=== PATIENT | male | born 1950 | race African-American/Black ===

== ENCOUNTER → 2017-10-18 | Outpatient (CLI) | payer BC ==
[~2017-10-18] MED LIST: ATOR20TA65 PO; CEPH250C37 PO; CEPH500C24 PO; CHLO5CAP PO; DOXY-179 PO; MELO-207 PO; [UNRECOGNIZED DRUG - REMARK]
[2017-10-18 08:48] LABS: PLATELET COUNT, AUTOMATED 253 K/uL (150-450)
[2017-10-18 09:44] LABS: LDL CHOLESTEROL 87 mg/dl
== END ==
LOC: LAB 08:03
PROVIDERS: ATTEND Internal Medicine
DX: E78.4 Other hyperlipidemia (principal); R73.9 Hyperglycemia, unspecified; R03.0 Elevated blood-pressure reading, without diagnosis of hypertension; E78.5 Hyperlipidemia, unspecified
CPT/HCPCS: 36415; 81001; 82040; 82247; 82310; 82374; 82435; 82465; 82565; 82947; 83036; 83718; 84075; 84132; 84155; 84295; 84443; 84450; 84460; 84478; 84520; 85025

== ENCOUNTER → 2018-10-23 | Outpatient (CLI) | payer BC ==
[~2018-10-23] MED LIST changes: +FLUT16SP19 NS
[2018-10-23 07:34] LABS: PLATELET COUNT, AUTOMATED 251 K/uL (150-450)
[2018-10-23 07:50] LABS: LDL CHOLESTEROL 94 mg/dl
== END ==
LOC: LAB 07:10
PROVIDERS: ATTEND Internal Medicine
DX: R73.9 Hyperglycemia, unspecified (principal); E78.5 Hyperlipidemia, unspecified; J06.9 Acute upper respiratory infection, unspecified; R03.0 Elevated blood-pressure reading, without diagnosis of hypertension
CPT/HCPCS: 36415; 81001; 82040; 82247; 82310; 82374; 82435; 82465; 82565; 82947; 83036; 83718; 84075; 84132; 84153; 84155; 84295; 84443; 84450; 84460; 84478; 84520; 85025

== ENCOUNTER 2018-11-11 00:43 | Emergency (ER) | payer BC ==
[~2018-11-11 00:43] MED LIST changes: +ATOR40TA69 PO; +TAMS0.4C25 PO
[2018-11-11 00:47] VITALS: BP 168/82
--- NOTE | 2018-11-11 00:48 | ER Report ---
History and Physical Time Seen By MD: 00:47 HPI/ROS CHIEF COMPLAINT: Left forearm wound HISTORY OF PRESENT ILLNESS: 68-year-old male presents ambulatory to the ER concerned over a wound on his left forearm. Patient's unsure how he obtained the wound. He admits that earlier [place] He recalls no contact with any trees or shrubs. Close examination of his left forearm reveals a tiny 1-2 mm puncture wound with a lateral scrape. There is no palpable foreign body. Patient notes no distal numbness or weakness. He demonstrates a strong grasp. Patient thinks his tetanus shot is greater than 10 years. Allergies: Coded Allergies: No Known Drug Allergies (Unverified , 07/23/14) Home Meds Active Scripts Tamsulosin Hcl (FLOMAX) 0.4 Mg Cap.er.24h, 0.4 MG PO QHS, #30 CAP 6 Refills Prov:REINIER CAMPBELL MD 11/08/18 Atorvastatin Calcium (ATORVASTATIN CALCIUM) 40 Mg Tablet, 1 TAB PO QDAY, #90 TAB 3 Refills Prov:REINIER CAMPBELL MD 11/08/18 Chlordiazepoxide Hcl (CHLORDIAZEPOXIDE HCL) 5 Mg Capsule, 1 CAP PO DAILY, #90 CAPSULE 1 Refill Prov:REINIER CAMPBELL MD 10/17/17 Discontinued Scripts Fluticasone Prop 50 Mcg Ns (FLONASE 50 MCG NS) 16 Gm [place].susp, 2 SPRAYS NS QDAY, #1 BOT Prov:REINIER CAMPBELL MD 09/07/18 Atorvastatin Calcium (ATORVASTATIN CALCIUM) 20 Mg Tablet, 1 TAB PO QDAY, #90 TAB 3 Refills Prov:REINIER CAMPBELL MD 03/27/18 Reviewed Nurses Notes: Yes Old Medical Records Reviewed: Yes Hx Smoking: No Smoking Status: Never Smoker Hx Alcohol Use: Yes Constitutional Vital Sign - Last 24 Hours 11/11/18 00:47 Temp 98.6 Pulse 80 Resp 15 B/P (MAP) 168/82 Pulse Ox 91 O2 Delivery Room Air Physical Exam General appearance: Alert no distress. Respiratory: Chest is non tender, lungs are clear to auscultation. Cardiac: Regular rate and rhythm Extremities: Examination of the left arm reveals a puncture wound over the olecranon process down the mid forearm region. There is also an adjacent abrasion. There is no palpable foreign body. Distal neurovascular function in the left hand is intact. There is no pain on movement of the elbow or the wrist. DIFFERENTIAL DIAGNOSIS: After history and physical exam differential diagnosis was considered for puncture wound, abrasion Medical Decision Making ED Course/Re-evaluation ED Course Patient was admitted to an examination room. H&P was done. The differential diagnosis was considered. On clinical examination. Patient has a intact neurovascular function in his left arm. There is a puncture wound. His tetanus status is updated. Patient's advised wound care and observation for signs of infection. Decision to Disposition Date: November 11, 2018 Decision to Disposition Time: 01:01 Depart Departure Latest Vital Signs Vital Signs Date Time Temp Pulse Resp B/P (MAP) Pulse Ox O2 Delivery O2 Flow Rate FiO2 11/11/18 00:47 98.6 80 15 168/82 91 Room Air Impression: Primary Impression: Puncture wound of forearm Condition: Improved Disposition: HOME OR SELF-CARE Referrals: REINIER CAMPBELL MD (PCP) Patient Instructions: Puncture Wound (ED) Additional Instructions: Monitor for signs of infection Clean the wound daily and apply some anabolic ointment and a Band-Aid Problem Qualifiers Primary Impression: Puncture wound of forearm Encounter type: initial encounter Laterality: left Qualified Codes: S51.832A - Puncture wound without foreign body of left forearm, initial encounter SHAHZAD MART DO November 11, 2018 00:48
[2018-11-11] MEDS ORDERED: DIPHTH/TETANUS/ACEL. PERTUSSIS IM ONLY ONE (01:00)
== END 2018-11-11 01:28 | disposition home or self-care (01) ==
LOC: ER 00:51
DX: S51.832A Puncture wound without foreign body of left forearm, initial encounter (principal)
CPT/HCPCS: 90471; 90715; 99283